=== PATIENT | female | born 1990 | race Caucasian/White ===

== ENCOUNTER 2016-07-02 10:56 | Emergency (ER) | payer MEDICAID, OTHER ==
[~2016-07-02] VITALS: Ht 177.8 cm; Wt 89.8 kg
[2016-07-02 11:10] VITALS: BP 147/98
--- NOTE | 2016-07-02 11:13 | NUR ---
Pt taken to bed 6.
--- NOTE | 2016-07-02 11:17 | NUR ---
26/F presents to ED for evaluatino of right foot pain x1 week. Pt states she fell into a hole while walking. Patient is AOX4, ambulates with steady gait. No swelling noted, no deformity noted. CMS intact.
--- NOTE | 2016-07-02 11:39 | NUR ---
Patient being evaluated by physician at bedside.
--- NOTE | 2016-07-02 11:48 | NUR ---
Patient taken to bed 6 via w/c. Addendum: 07/02/16 at 1208 by [facility] Pt taken to x-ray via w/c.
[2016-07-02 12:43] VITALS: BP 147/98
--- NOTE | 2016-07-02 12:44 | NUR ---
Chart checked and completed. The patient's care was reviewed and supervised by Joseph Espinosa RN.
== END 2016-07-02 12:44 | disposition home or self-care (01) ==
LOC: MED 10:56
DX: S90.31XA Contusion of right foot, initial encounter (principal); W31.89XA Contact with other specified machinery, initial encounter; Y93.02 Activity, running; Y92.89 Other specified places as the place of occurrence of the external cause; Y99.8 Other external cause status

== ENCOUNTER 2019-07-03 22:49 | Emergency (ER) | payer SELFPAY ==
[~2019-07-03] VITALS: Ht 182.9 cm; Wt 97.5 kg
[2019-07-03 23:00] VITALS: BP 140/80
--- NOTE | 2019-07-03 23:03 | NUR ---
TO LOBBY A/W BED AMBULATORY WITH PATIENTS
--- NOTE | 2019-07-03 23:29 | NUR ---
PT AMBULATED TO BED 9 WITH FAMILY MEMBER
--- NOTE | 2019-07-03 23:35 | NUR ---
[facility]. pt appears to be in no distress. pt admits to taking shots of taquilla and lost balance twice and hit her face. pt aax4 gcs 15. pt remembers incident. Pt denies LOC. Waiting for CT to be taken of face.
--- NOTE | 2019-07-04 01:31 | NUR ---
NO CHANGES FROM PREVIOUS ASSESSMENT. VSS. WILL CONTINUE TO MONITOR PT. PT RESTING COMFORTABLY IN BED.
[2019-07-04] MEDS ORDERED: NEOMYCIN/POLYMYXIN/BACITRACIN 0.9 GM/1 PKT TP ONE (02:20)
--- NOTE | 2019-07-04 02:27 | NUR ---
Patient discharged with v/s stable. Written and verbal after care instructions given and explained. Patient alert, oriented and verbalized understanding of instructions. Ambulatory with steady gait. All questions addressed prior to discharge. ID band removed. Patient advised to follow up with PMD. Rx of NEOSPORYN AND MOTRIN given. Patient educated on indication of medication including possible reaction and side effects. Opportunity to ask questions provided and answered.
[2019-07-04 02:28] VITALS: BP 135/73
== END 2019-07-04 02:28 | disposition home or self-care (01) ==
LOC: MED 22:49
DX: S00.81XA Abrasion of other part of head, initial encounter (principal); R03.0 Elevated blood-pressure reading, without diagnosis of hypertension; F10.10 Alcohol abuse, uncomplicated; W19.XXXA Unspecified fall, initial encounter; Y93.89 Activity, other specified; Y92.89 Other specified places as the place of occurrence of the external cause; Y99.8 Other external cause status
CPT/HCPCS: 70486; 81025; 90471; 90715; 99284

== ENCOUNTER 2022-11-30 13:38 | Emergency (ER) | payer OTHER ==
[~2022-11-30] VITALS: Ht 177.8 cm; Wt 93.0 kg
[2022-11-30 13:49] VITALS: BP 121/62; PULSE 110; RESP 16; O2SAT 96
[2022-11-30 13:58] VITALS: TEMP 97
[2022-11-30] MEDS ORDERED: ONDANSETRON 4 MG/2 ML VIAL ONE (14:01)
[2022-11-30 14:21] LABS: BASOPHILS # (AUTO) 0.1 K/uL (0.00-0.22); EOSINOPHILS # (AUTO) 0.1 K/uL (0-0.4); EOSINOPHILS % (AUTO) 0.7 % (0.0-4.0); HEMATOCRIT 35.3 % (36-48); HEMOGLOBIN 11.3 g/dL (12.0-16.0); LYMPHOCYTES % (AUTO) 20.3 % (20.5-51.1); MEAN CORPUSCULAR HEMOGLOBIN 25 pg (27-31); MEAN CORPUSCULAR HGB CONC 32 g/dL (33-37); MEAN CORPUSCULAR VOLUME 76.7 fL (80-94); NEUTROPHILS # (AUTO) 6.9 K/uL (1.8-7.7); PLATELET COUNT (AUTO) 224 K/uL (140-450); WHITE BLOOD COUNT (AUTO) 10.1 K/uL (4.8-10.8)
[2022-11-30] MEDS ORDERED: NACL 0.9% 1,000 ML IV ONE (14:30)
[2022-11-30] MEDS ORDERED: ONDANSETRON 4 MG/2 ML VIAL IVP ONE (14:30)
[2022-11-30 14:36] LABS: ALBUMIN 4.1 g/dL (3.4-5.0); CARBON DIOXIDE 22.8 mmol/L (21-32); CREATININE 0.8 mg/dL (0.6-1.3); POTASSIUM 3.8 mmol/L (3.5-5.1); TOTAL BILIRUBIN 0.9 mg/dL (0.0-1.0)
[2022-11-30 15:43] VITALS: BP 124/64; PULSE 90; RESP 14; O2SAT 98
[2022-11-30 16:40] LABS: APPEARANCE,URINE CLEAR (CLEAR); BILIRUBIN,URINE NEGATIVE (NEGATIVE); BLOOD, URINE 1+ (NEGATIVE); COLOR,URINE YELLOW (YELLOW); LEUKOCYTE ESTERASE ,URINE NEGATIVE (NEGATIVE); NITRITE, URINE NEGATIVE (NEGATIVE); UGLUCOSE NEGATIVE (NEGATIVE)
[2022-11-30 16:48] LABS: BARBITURATE, URINE NEGATIVE ng/ml (NEG <=200); BENZODIAZEPINE, URINE NEGATIVE ng/mL (NEG <=200); CANNABINOID, URINE NEGATIVE ng/mL (NEG <=50); COCAINE, URINE NEGATIVE ng/mL (NEG <=300); PHENCYCLIDINE SCREEN,URINE NEGATIVE ng/mL (NEG <=25)
[2022-11-30 16:49] LABS: OPIATE, URINE NEGATIVE ng/mL (NEG <=2000)
[2022-11-30 16:56] LABS: TRICHOMONAS,URINE None Seen /HPF (None Seen); YEAST,URINE None Seen /HPF (None Seen)
--- NOTE | 2022-11-30 18:30 | NUR ---
Patient discharged with v/s stable. Written and verbal after care instructions given and explained. Patient verbalized understanding. Ambulatory with to home WITH MOM. All questions addressed prior to discharge. Advised to follow up with PMD.
--- NOTE | 2022-11-30 18:37 | NUR ---
The patient's care was reviewed and supervised by OCTAVIO MILAN RN.
== END 2022-11-30 18:30 | disposition home or self-care (01) ==
LOC: MED 13:38
DX: R55 Syncope and collapse (principal); R42 Dizziness and giddiness; M54.10 Radiculopathy, site unspecified; W19.XXXA Unspecified fall, initial encounter; Y93.89 Activity, other specified; Y92.89 Other specified places as the place of occurrence of the external cause; Y99.8 Other external cause status
CPT/HCPCS: 36415; 70450; 80053; 80305; 81001; 81025; 83735; 84443; 84484; 85025; 85379; 93005; 96361; 96374; 99285; G0482; J2405; J7030